=== PATIENT | female | born 1955 | race Caucasian/White ===

== ENCOUNTER 2022-10-14 10:58 | Outpatient (CLI) | payer MEDICARE, SELFPAY ==
[2022-10-14 12:42] LABS: Absolute Lymphocyte Count 2.18 X10^3/uL (0.83-4.51); Absolute Neutrophil Count 2.6 X10^3/uL (2.0-7.7); Basophil# 0.03 X10^3/uL; Basophil% 0.5 % (0-1); Eosinophil# 0.25 X10^3/uL; Eosinophils% 4.5 % (0-5); Hematocrit 39.8 % (37-47); Hemoglobin 13.2 g/dL (12.0-15.0); Lymphocyte # 2.18 X10^3/ul (0.83-4.51); Lymphocyte % 39.5 % (19-41); Mean Corp Hgb Conc 33.2 g/dL (32-36); Mean Corpuscular Hgb 31.5 pg (27.0-32.0); Mean Platelet Vol. 9.7 fl (6.2-12.0); Monocyte# 0.41 X10^3/uL; Monocyte% 7.4 % (0-10); NRBC Flagged by Analyzer 0 % (0-5); Neutrophil # 2.64 X10^3/uL (2.7-7.7); Neutrophil % 47.9 % (47-70); Platelet Count 271 K/mm3 (150-450); RBC Distribution Width CV 12.2 % (11.6-14.6); RBC Distribution Width SD 42.7 fl (35.1-43.9); Red Blood Count 4.19 M/mm3 (4.2-5.4); White Blood Count 5.5 K/mm3 (4.4-11.0)
[2022-10-14 13:12] LABS: T3 Total - Triiodothyronine 0.98 ng/mL (0.6-1.81); Vitamin D,25 Hydroxy 30.9 ng/mL
[2022-10-14 13:25] LABS: Iron 107 ug/dL (50-170); Iron Binding Capacity,Total 324 ug/dL (250-450); T4 Total, Thyroxin 6.4 ug/dL (4.8-13.9); Thyroid Stim Hormone (TSH) 1.36 uIU/mL (0.358-3.74)
[2022-10-15 16:32] LABS: Thyroid Peroxidase AB 10 IU/mL (0-34)
== END 2022-10-14 23:59 | disposition home or self-care (01) ==
PROVIDERS: Referring Provider Physician Assistant Medical; Visit Provider Physician Assistant Medical
DX: L80 Vitiligo (principal); L57.8 Other skin changes due to chronic exposure to nonionizing radiation; R53.83 Other fatigue; E55.9 Vitamin D deficiency, unspecified
CPT/HCPCS: 36415; 82306; 82652; 83540; 83550; 84436; 84443; 84480; 85025; 86376